=== PATIENT | male | born 1980 | race Caucasian/White ===

== ENCOUNTER 2025-01-19 07:38 | Emergency (ER) | payer OTHER ==
[2025-01-19] MEDS ORDERED: Lidocaine/Transparent Dressing 1 EACH KIT ONE (08:28)
[2025-01-19] MEDS ORDERED: HYDROcodone/Acetaminophen 10/325 mg Tablet ONE (08:28)
== END 2025-01-19 08:51 | disposition home or self-care (01) ==
LOC: BURERS 07:38
DX: K64.4 Residual hemorrhoidal skin tags (principal)
CPT/HCPCS: 99283

== ENCOUNTER 2025-01-21 02:47 | Emergency (ER) | payer OTHER ==
[2025-01-21] MEDS ORDERED: HYDROmorphone 0.5 MG/0.5 ML SYRINGE ONE (03:15)
[2025-01-21] MEDS ORDERED: Lidocaine 1% w/Epinephrine 1:100K 20 ML VIAL ONE (03:16)
[2025-01-21] MEDS ORDERED: Ciprofloxacin 500 MG TAB ONE (03:45)
[2025-01-21] MEDS ORDERED: Iopamidol 370 76% 100 ML VIAL ONE (16:35)
== END 2025-01-21 05:34 | disposition home or self-care (01) ==
LOC: BURERS 02:47
DX: K61.1 Rectal abscess (principal)
CPT/HCPCS: 46040; 72193; 96374; 96375; J1171; J3490; Q9967